=== PATIENT | female | born 1930 | race Caucasian/White ===

== ENCOUNTER → 2016-10-26 | Outpatient (CLI) | payer OTHER ==
[~2016-10-26] MED LIST: OPTIRAY 320 IV PRN
--- NOTE | 2016-10-26 12:51 | DIAGNOSTIC IMAGING REPORT ---
CT SCAN OF THE ABDOMEN COMBO RENAL MASS PROTOCOL CLINICAL HISTORY: Renal mass. COMPARISON STUDY: Abdominal CT dated 09/01/2015. TECHNIQUE: Before and following the IV administration of 94 cc of Optiray 320, CT scan of the abdomen is performed from the lung bases to the pelvic inlet utilizing the renal mass protocol. Images are reviewed in the axial, sagittal, and coronal planes. IV contrast was administered without complication. Automated dose control exposure was utilized. CT DOSE: 542.43 mGycm FINDINGS: Lung bases: The heart is enlarged and without pericardial effusion. The mitral annulus is densely calcified. The lung bases are clear. Liver: The contrast-enhanced liver is normal in size, contour, and attenuation. There is minimal central intrahepatic biliary ductal dilatation. The hepatic veins and portal veins are patent. A 1.3 cm cyst is noted in the hepatic dome. Fatty infiltration is seen adjacent to the falciform ligament. Gallbladder: Unremarkable. Spleen: Normal in size and attenuation. A 1.4 cm low-attenuation lesion in the inferior spleen is unchanged from previous and of doubtful significance. Pancreas: There is moderate glandular atrophy of the pancreas which is grossly unremarkable. Curvilinear calcification adjacent to the pancreatic head is unchanged from previous and may represent postoperative change. Adrenal glands: Unremarkable. Kidneys: No renal calculi are identified on the unenhanced series. The contrast enhanced kidneys atrophic and without hydronephrosis. There is mild persistent fullness of the left renal collecting system. The kidneys enhance excrete symmetrically. There is a 1.5 cm lesion arising from the lower pole of the left kidney seen on axial image #138 of the portal venous phase series. This appears to demonstrate postcontrast enhancement. No additional enhancing renal lesions are suggested. Additional subcentimeter cortical hypodensities likely represent cysts. Parapelvic cysts are noted on the left. There is no evidence of urothelial lesion within the renal pelvis bilaterally or on the course of the proximal ureters. Abdominal vasculature: The abdominal aorta is normal in course and caliber noting moderate atherosclerotic calcification. Bowel: Visualized portions of the small bowel and colon are normal in course and caliber. Peritoneum: There is no intraperitoneal free air or abdominal ascites. Lymphadenopathy: None. Skeletal structures: The skeletal structures are osteopenic. Moderate lumbar spondylosis is observed. There is a mild compression deformity of T12. No lytic or blastic lesions are seen. IMPRESSION: 1. No acute infectious or inflammatory findings are identified in the abdomen. 2. There is a 1.5 cm lesion arising from the lower pole of the left kidney. This has modestly increased in size from 09/01/2015 and appears to demonstrate postcontrast enhancement. Renal cell carcinoma remains the diagnosis of exclusion. 3. Additional findings as above. Electronically signed by: Andrew Cuadra M.D. 10/26/2016 12:49 PM Dictated Date/Time: 10/26/2016 12:41 PM
== END | disposition home or self-care (01) ==
LOC: C.CTS 12:07
PROVIDERS: ATTEND Urology
DX: N28.89 Other specified disorders of kidney and ureter (principal); M85.89 Other specified disorders of bone density and structure, multiple sites

== ENCOUNTER → 2017-09-20 | Outpatient (CLI) | payer OTHER ==
--- NOTE | 2017-09-20 11:30 | DIAGNOSTIC IMAGING REPORT ---
CT OF THE ABDOMEN WITH AND WITHOUT CONTRAST RENAL PROTOCOL CLINICAL HISTORY: Left renal mass. COMPARISON STUDY: CT of the abdomen October 26, 2016. TECHNIQUE: Unenhanced, nephrographic and 5 minute delayed phase imaging of the abdomen was performed. Intravenous injection of 93 cc of Optiray 320 IV was uneventful. FINDINGS: Visualized portions of the lower chest demonstrate interval development of a small left and trace right pleural effusions. A right hepatic lobe cyst is noted. The spleen, adrenal glands, right kidney and pancreas are unremarkable. Note is made of a 1.1 cm cyst within the upper pole of the left kidney. A mildly enhancing lesion arising from the lower pole of the left kidney measures 1.6 cm. It previously measured 1.5 cm on exam of October 26, 2016. No additional enhancing lesions are present. There is no abdominal lymphadenopathy. There are no suspicious osseous lesions. No biliary or pancreatic ductal dilatation is present. Caliber and wall thickness of visualized small and large bowel are normal. IMPRESSION: 1. Minimal increase in size of a 1.6 cm enhancing lesion within the lower pole of the left kidney since CT of October 26, 2016. This favors a renal cell carcinoma. 2. Interval development of small left and trace right pleural effusions. 3. Moderate cardiomegaly. Electronically signed by: Gilbert Richey M.D. 09/20/2017 11:29 AM Dictated Date/Time: 09/20/2017 11:11 AM
== END | disposition home or self-care (01) ==
LOC: C.CTS 10:11
PROVIDERS: ATTEND Urology
DX: N28.89 Other specified disorders of kidney and ureter (principal); I51.7 Cardiomegaly; N28.1 Cyst of kidney, acquired